=== PATIENT | male | born 1960 | race Asian ===

== ENCOUNTER 2017-04-08 17:41 | Emergency (ER) | payer BC ==
[~2017-04-08] VITALS: Ht 180.3 cm; Wt 90.7 kg
== END 2017-04-08 19:15 | disposition home or self-care (01) ==
LOC: ED 17:41
DX: M54.5 Low back pain (principal); M47.896 Other spondylosis, lumbar region; M54.32 Sciatica, left side; F10.10 Alcohol abuse, uncomplicated
CPT/HCPCS: 80320; 81000; 99283

== ENCOUNTER 2019-06-04 09:08 | Emergency (ER) | payer OTHER ==
[~2019-06-04] VITALS: Ht 180.3 cm; Wt 95.3 kg
[2019-06-04 09:13] VITALS: TEMP 98.8
[2019-06-04 10:30] VITALS: BP 143/88
[2019-06-04 10:30] LABS: PLATELET COUNT 317 K/uL (142-355)
[2019-06-04 10:38] LABS: POTASSIUM 3.8 mmol/L (3.6-5.2); SODIUM 141 mmol/L (136-145)
== END 2019-06-04 11:23 | disposition home or self-care (01) ==
LOC: ED 09:08
PROVIDERS: Emergency Medicine
DX: I73.9 Peripheral vascular disease, unspecified (principal); F17.208 Nicotine dependence, unspecified, with other nicotine-induced disorders
CPT/HCPCS: 80053; 81000; 82550; 83036; 83735; 84484; 85027; 93005; 99283

== ENCOUNTER 2020-02-11 03:04 | Emergency (ER) | payer OTHER ==
[~2020-02-11] VITALS: Ht 180.3 cm; Wt 76.7 kg
[2020-02-11 03:56] VITALS: BP 154/87; TEMP 98.2
== END 2020-02-11 03:56 | disposition home or self-care (01) ==
LOC: ED 03:04
DX: S79.821A Other specified injuries of right thigh, initial encounter (principal); Z89.611 Acquired absence of right leg above knee; W18.39XA Other fall on same level, initial encounter; Y92.89 Other specified places as the place of occurrence of the external cause
CPT/HCPCS: 99282

== ENCOUNTER 2023-03-19 11:07 | Emergency (ER) | payer OTHER ==
[~2023-03-19] VITALS: Ht 180.3 cm; Wt 90.7 kg
[2023-03-19 11:14] VITALS: BP 208/100; TEMP 97.4
[2023-03-19 13:08] LABS: PLATELET COUNT 234 K/uL (142-355)
[2023-03-19 13:39] LABS: POTASSIUM 3.9 mmol/L (3.6-5.2)
[2023-03-19 14:04] LABS: PARTIAL THROMBOPLASTIN TIME 28.1 SECONDS (23.9-36.7)
== END 2023-03-19 14:21 | disposition home or self-care (01) ==
LOC: ED 11:07
PROVIDERS: Family Medicine
DX: I10 Essential (primary) hypertension (principal); F17.210 Nicotine dependence, cigarettes, uncomplicated; F12.90 Cannabis use, unspecified, uncomplicated
CPT/HCPCS: 36415; 80053; 82550; 84484; 85027; 85610; 85730; 93005; 96360; 99284